=== PATIENT | male | born 1995 | race Caucasian/White ===

== ENCOUNTER → 2017-08-04 | Outpatient (CLI) | payer SELFPAY | END | disposition home or self-care (01) | LOC: YCFC.O 16:47 | DX: G56.10 Other lesions of median nerve, unspecified upper limb (principal) ==

== ENCOUNTER → 2020-11-25 | Outpatient (CLI) | payer OTHER ==
--- NOTE | 2020-11-25 12:07 | MRI ---
Study: MRI of the Right Shoulder. Indication: RIGHT SHOULDER PAIN Technique: Multiplanar, multi sequence MRI of the right shoulder was obtained without intravenous contrast. Comparison: None. Findings: AC joint normal. Os acromiale with type I configuration and mild marrow edema about the synchondrosis. Supraspinatus and infraspinatus tendinosis without fluid-filled tear. Subscapularis and teres minor tendons intact. Rotator cuff musculature normal without atrophy, fatty infiltration, or intramuscular edema. Long head biceps tendon intact. No fluid-filled labral tear. No acute fracture or advanced glenohumeral cartilage loss. Tiny joint effusion. Impression: Supraspinatus and infraspinatus tendinosis without fluid-filled tear. Os acromiale with mild marrow edema at the synchondrosis. Tiny glenohumeral joint effusion. Electronically signed by: Rodolfo Shabazz MD 11/25/2020 12:05 PM [facility]
== END ==
LOC: MRI 07:00
PROVIDERS: ATTEND Nurse Practitioner Family
DX: M25.411 Effusion, right shoulder (principal); M77.9 Enthesopathy, unspecified; M94.8X1 Other specified disorders of cartilage, shoulder